=== PATIENT | female | born 1975 | race Caucasian/White ===

== ENCOUNTER 2024-07-13 10:33 | Outpatient (CLI) | payer BC, SELFPAY ==
--- NOTE | 2024-07-13 10:56 | XR_ITS ---
FINAL REPORT CLINICAL HISTORY: NECK PAIN COMPARISON: None FINDINGS: CERVICAL SPINE 5 views were obtained. There is no acute fracture or malalignment. Inter-vertebral disc and vertebral body heights are preserved. Cervical lordosis is preserved. Facet joints are properly aligned. There are mild degenerative changes, greatest at C5-6. IMPRESSION: Degenerative changes without acute process. Reviewed, Interpreted and Dictated by Alex Lomax III, MD Transcribed by Sarah Watkins Authenticated and [facility]
--- NOTE | 2024-07-13 10:56 | XR_ITS ---
FINAL REPORT CLINICAL HISTORY: back pain COMPARISON: None FINDINGS: LUMBOSACRAL SPINE 7 views of the lumbosacral spine, including flexion and extension views, were obtained. Disc space narrowing is noted at L4-5. Alignment is within normal limits. There are mild and moderate degenerative changes. Prevertebral soft tissues are unremarkable. There is no abnormal movement with flexion or extension. IMPRESSION: Degenerative changes without acute process. Reviewed, Interpreted and Dictated by Alex Lomax III, MD Transcribed by Sarah Watkins Authenticated and [facility]
== END 2024-07-13 23:59 | disposition home or self-care (01) ==
LOC: RAD 10:45
PROVIDERS: PCP Nurse Practitioner Family; Visit Provider Nurse Practitioner Family
DX: M54.9 Dorsalgia, unspecified (principal)
CPT/HCPCS: 72050; 72114